=== PATIENT | female | born 1980 | race Caucasian/White ===

== ENCOUNTER 2016-11-08 14:53 | Emergency (ER) | payer OTHER ==
[~2016-11-08] VITALS: Ht 162.6 cm; Wt 61.7 kg
[~2016-11-08 14:53] MED LIST: ASPIR 8181 MG PO; CARAFATE1 GM PO; ELA25 PO; LISINOPRIL10 MG PO; NORCO1 TA2 PO; OMEPRAZOLE40 M1 PO; PLA200 PO; PREDNISOLONE5 MG PO; PREDNISONE20 MG PO; PRI20 PO; PRILOSEC40 MG PO; ROBAXIN500 MG PO
[2016-11-08 17:04] LABS: BASOPHIL % 0.3 % (0-2); PLATELET COUNT 238 x10^3mcL (130-400)
[2016-11-08 17:06] LABS: RED CELL DISTRIBUTION WIDTH 16.5 % (11.5-14.5)
[2016-11-08 17:20] LABS: CARBON DIOXIDE 28.1 mmol/L (21-32); CHLORIDE SERUM 105 mmol/L (98-107); GFR1 > 60 mL/min; GLUCOSE SERUM 96 mg/dL (74-106); POTASSIUM SERUM 4.5 mmol/L (3.5-5.1); SODIUM SERUM 141 mmol/L (136-145)
[2016-11-08 17:24] LABS: ALBUMIN 3.7 g/dL (3.4-5.0); ALKALINE PHOSPHATASE 82 U/L (46-116); ALT/SGPT 31 U/L (14-59); AST/SGOT 16 U/L (15-37); BILIRUBIN TOTAL 0.23 mg/dL (0.20-1.00); TOTAL PROTEIN, SERUM 7.3 g/dL (6.4-8.2)
[2016-11-08 18:40] VITALS: BP 138/93
== END 2016-11-08 18:40 | disposition home or self-care (01) ==
LOC: ED 14:53
PROVIDERS: Emergency Medicine
DX: R25.2 Cramp and spasm (principal); M32.9 Systemic lupus erythematosus, unspecified; M06.9 Rheumatoid arthritis, unspecified; I10 Essential (primary) hypertension; G89.29 Other chronic pain; K58.9 Irritable bowel syndrome, unspecified; M26.609 Unspecified temporomandibular joint disorder, unspecified side; I34.1 Nonrheumatic mitral (valve) prolapse; K21.9 Gastro-esophageal reflux disease without esophagitis; Z88.2 Allergy status to sulfonamides; Z88.6 Allergy status to analgesic agent; Z88.1 Allergy status to other antibiotic agents
CPT/HCPCS: 36415; 83880; A4570

== ENCOUNTER 2016-11-09 23:42 | Emergency (ER) | payer OTHER ==
[2016-11-10 01:40] VITALS: BP 132/78
== END 2016-11-10 01:40 | disposition home or self-care (01) ==
LOC: ED 23:42
DX: R56.9 Unspecified convulsions (principal)
CPT/HCPCS: J2060

== ENCOUNTER 2016-11-29 21:52 | Emergency (ER) | payer OTHER ==
[2016-11-30 02:01] LABS: CALCIUM 8.8 mg/dL (8.5-10.1); CARBON DIOXIDE 31.7 mmol/L (21-32); CHLORIDE SERUM 103 mmol/L (98-107); GFR1 > 60 mL/min; GLUCOSE SERUM 85 mg/dL (74-106); POTASSIUM SERUM 4.2 mmol/L (3.5-5.1); SODIUM SERUM 139 mmol/L (136-145)
[2016-11-30 02:04] LABS: BASOPHIL % 0.3 % (0-2); PLATELET COUNT 225 x10^3mcL (130-400)
[2016-11-30 02:06] LABS: RED CELL DISTRIBUTION WIDTH 17.4 % (11.5-14.5)
[2016-11-30 03:21] VITALS: BP 125/88
== END 2016-11-30 03:21 | disposition home or self-care (01) ==
LOC: ED 21:52
PROVIDERS: Emergency Medicine
DX: R07.89 Other chest pain (principal); I10 Essential (primary) hypertension; R20.0 Anesthesia of skin; R56.9 Unspecified convulsions; H53.8 Other visual disturbances; Z79.51 Long term (current) use of inhaled steroids; Z79.899 Other long term (current) drug therapy; Z90.10 Acquired absence of unspecified breast and nipple
CPT/HCPCS: 84439; J7030

== ENCOUNTER 2018-03-23 12:58 | Emergency (ER) | payer OTHER ==
[~2018-03-23] VITALS: Ht 162.6 cm; Wt 60.3 kg
[2018-03-23 13:13] VITALS: Ht 162.6 cm; Wt 60.3 kg
[2018-03-23 14:19] LABS: BASOPHIL % 0.5 % (0-2); PLATELET COUNT 203 x10^3mcL (130-400)
[2018-03-23 14:21] LABS: RED CELL DISTRIBUTION WIDTH 15.3 % (11.5-14.5)
[2018-03-23 16:03] VITALS: BP 128/94
== END 2018-03-23 16:03 | disposition home or self-care (01) ==
LOC: ED 12:58
PROVIDERS: Emergency Medicine
DX: N93.8 Other specified abnormal uterine and vaginal bleeding (principal); I10 Essential (primary) hypertension; M32.9 Systemic lupus erythematosus, unspecified; I73.00 Raynaud's syndrome without gangrene; Z85.3 Personal history of malignant neoplasm of breast; Z90.13 Acquired absence of bilateral breasts and nipples; Z88.2 Allergy status to sulfonamides; Z88.1 Allergy status to other antibiotic agents; Z88.6 Allergy status to analgesic agent
CPT/HCPCS: 36415